=== PATIENT | male | born 1965 | race Caucasian/White ===

== ENCOUNTER 2017-04-03 21:32 | Emergency (ER) | payer OTHER ==
[~2017-04-03] VITALS: Ht 172.7 cm; Wt 99.4 kg
[2017-04-03 23:40] LABS: HEMATOCRIT 41.6 % (38.0-50.0); MCH 31.8 PG (29.0-34.0); MCHC 34.4 G/DL (30.0-36.0); MCV 92.4 FL (86-99); MEAN PLAT.VOLUME 9.1 uM^3 (9.0-12.4); PLATELET COUNT 244 K/uL (156-360); RBC DIS.WIDTH-CV 11.5 % (11.8-14.6); WHITE BLOOD COUNT 8.1 K/uL (4.1-10.2)
[2017-04-03 23:45] LABS: CHLORIDE 104 mEq/L (99-109); POTASSIUM 3.7 mEq/L (3.7-5.4); SODIUM 136 mEq/L (136-147)
[2017-04-03 23:47] LABS: GLUCOSE 120 mg/dL (70-99)
[2017-04-03 23:48] LABS: ANION GAP 8 MEQ/L (2-14)
[2017-04-03 23:51] LABS: GFR ESTIMATE (CALCULATED) > 59 mL/min/; UREA NITROGEN (BUN) 11 mg/dL (9-23)
[2017-04-04] MEDS ORDERED: NORCO 5/3251 TABLET PO (00:52)
[2017-04-04] MEDS ORDERED: AUGMENTIN875 MG PO (00:52)
[2017-04-04] MEDS ORDERED: MOTRIN800 MG PO (00:52)
[2017-04-04 01:04] VITALS: BP 137/85
[2017-04-05] MEDS ORDERED: AUGMENTIN875 MG PO (21:13)
== END 2017-04-04 01:05 | disposition home or self-care (01) ==
LOC: EME 21:32
PROVIDERS: Physician Assistant
DX: J01.00 Acute maxillary sinusitis, unspecified (principal)
CPT/HCPCS: 70487; 80048; 85027; 87070; 87075; 87077; 87147; 87186; 87205; 99281; 99285; J1885; J3010; J7030

== ENCOUNTER 2017-04-05 18:07 | Inpatient (IN) | payer OTHER ==
[~2017-04-05] VITALS: Ht 172.7 cm; Wt 99.8 kg
[~2017-04-05 18:07] MED LIST: AUGMENTIN875 MG PO; MOTRIN800 MG PO; NORCO 5/3251 TABLET PO
[2017-04-05 20:33] LABS: HEMATOCRIT 42.5 % (38.0-50.0); MCH 31.9 PG (29.0-34.0); MCHC 34.4 G/DL (30.0-36.0); MCV 92.8 FL (86-99); RBC DIS.WIDTH-CV 11.5 % (11.8-14.6); RBC DIS.WIDTH-SD 38.8 % (39-53); RED BLOOD COUNT 4.58 M/uL (4.00-5.50); WHITE BLOOD COUNT 7.3 K/uL (4.1-10.2)
[2017-04-05 20:37] LABS: PLATELET COUNT 334 K/uL (156-360)
[2017-04-05 20:42] LABS: CHLORIDE 101 mEq/L (99-109); SODIUM 140 mEq/L (136-147)
[2017-04-05 20:44] LABS: GLUCOSE 95 mg/dL (70-99)
[2017-04-05 20:46] LABS: ANION GAP 12 MEQ/L (2-14); TOTAL BILIRUBIN 0.5 mg/dL (0.0-1.0)
[2017-04-05 20:48] LABS: ALKALINE PHOSPHATASE 76 IU/L (3-129); GFR ESTIMATE (CALCULATED) > 59 mL/min/
[2017-04-05 20:49] LABS: UREA NITROGEN (BUN) 19 mg/dL (9-23)
[2017-04-05] MEDS ORDERED: AUGMENTIN875 MG PO (21:13)
[2017-04-05 22:38] VITALS: BP 140/81
[2017-04-06 05:03] VITALS: BP 143/74
[2017-04-06 06:59] LABS: EOSINOPHIL (%) 2.5 % (0-5); EOSINOPHIL COUNT 0.1 K/uL (0-0.3); HEMATOCRIT 36.7 % (38.0-50.0); IMMATURE GRANULOCYTE (%) 0.2 % (0.0-0.7); INSTRUMENT ABS NEUTROPHIL CT 2.3 K/uL; LYMPHOCYTE COUNT 1.5 K/uL (1.0-2.8); MCH 32.2 PG (29.0-34.0); MCHC 34.3 G/DL (30.0-36.0); MCV 93.9 FL (86-99); MEAN PLAT.VOLUME 9.1 uM^3 (9.0-12.4); MONOCYTE (%) 9.9 % (3-12); MONOCYTE COUNT 0.4 K/uL (0-0.8); NEUTROPHIL (%) 52.8 % (45-76); NEUTROPHIL COUNT 2.3 K/uL (1.8-6.4); PLATELET COUNT 258 K/uL (156-360); RBC DIS.WIDTH-CV 11.6 % (11.8-14.6); RBC DIS.WIDTH-SD 39.8 % (39-53); RED BLOOD COUNT 3.91 M/uL (4.00-5.50); WHITE BLOOD COUNT 4.4 K/uL (4.1-10.2)
[2017-04-06 07:41] VITALS: BP 132/68
[2017-04-06 11:18] VITALS: BP 135/68
[2017-04-06 16:52] VITALS: BP 138/76
[2017-04-06 16:59] LABS: POINT-OF-CARE METER ID UU14117124
[2017-04-06 17:30] VITALS: BP 137/69
[2017-04-06 21:36] LABS: POINT-OF-CARE METER ID UU14188577
[2017-04-06 23:23] VITALS: BP 125/60
[2017-04-07 07:00] LABS: EOSINOPHIL (%) 3.1 % (0-5); EOSINOPHIL COUNT 0.1 K/uL (0-0.3); HEMATOCRIT 37.4 % (38.0-50.0); IMMATURE GRANULOCYTE (%) 0.2 % (0.0-0.7); INSTRUMENT ABS NEUTROPHIL CT 2.2 K/uL; LYMPHOCYTE COUNT 1.5 K/uL (1.0-2.8); MCH 32.2 PG (29.0-34.0); MCHC 34.5 G/DL (30.0-36.0); MCV 93.3 FL (86-99); MEAN PLAT.VOLUME 8.9 uM^3 (9.0-12.4); MONOCYTE COUNT 0.4 K/uL (0-0.8); NEUTROPHIL (%) 51.6 % (45-76); NEUTROPHIL COUNT 2.2 K/uL (1.8-6.4); PLATELET COUNT 257 K/uL (156-360); RBC DIS.WIDTH-CV 11.3 % (11.8-14.6); RBC DIS.WIDTH-SD 38.9 % (39-53); RED BLOOD COUNT 4.01 M/uL (4.00-5.50); WHITE BLOOD COUNT 4.2 K/uL (4.1-10.2)
[2017-04-07 07:23] LABS: ANION GAP 7 MEQ/L (2-14); CHLORIDE 101 MEQ/L (99-109); GFR ESTIMATE (CALCULATED) > 59 mL/min/; GLUCOSE 106 mg/dL (70-99); POTASSIUM 4.5 MEQ/L (3.7-5.4); SAMPLE HEMOLYSIS CHECK 0; SAMPLE ICTERIC CHECK 0; SAMPLE LIPEMIA CHECK 0; SODIUM 139 MEQ/L (136-147); UREA NITROGEN (BUN) 21 mg/dL (9-23)
[2017-04-07 08:01] VITALS: BP 118/58
[2017-04-07 11:26] LABS: GFR ESTIMATE (CALCULATED) > 59 mL/min/; VANCOMYCIN, TROUGH 11.7 MCG/ML (10-20)
[2017-04-07 16:03] VITALS: BP 150/83
[2017-04-07 23:51] VITALS: BP 136/77
[2017-04-08 07:52] VITALS: BP 128/68
[2017-04-08] MEDS ORDERED: KEFLEX500 MG PO (10:20)
[2017-04-08] MEDS ORDERED: BACTRIM,SEPT1 TABLET PO (10:24)
== END 2017-04-08 12:26 | disposition home or self-care (01) | DRG 603 ==
LOC: EME 18:07 → 3EAST 21:06 → EDOF 21:06 → ENRESERV 21:14 → 3EAST 22:34
PROVIDERS: Internal Medicine; Physician Assistant; Physician Assistant Medical
DX: L03.211 Cellulitis of face (principal); J34.0 Abscess, furuncle and carbuncle of nose; B95.62 Methicillin resistant Staphylococcus aureus infection as the cause of diseases classified elsewhere; J01.00 Acute maxillary sinusitis, unspecified; Z82.49 Family history of ischemic heart disease and other diseases of the circulatory system; Z86.14 Personal history of Methicillin resistant Staphylococcus aureus infection
CPT/HCPCS: 70487; 80048; 80053; 80202; 82565; 82948; 83605; 85025; 85027; 87040; 87070; 87075; 87077; 87147; 87186; 87205; 99281; 99285; J0690; J1650; J1885; J3010; J3370; J7030